=== PATIENT | female | born 1995 | race Asian ===

== ENCOUNTER → 2020-08-10 | Emergency (ER) | payer OTHER ==
[~2020-08-10] VITALS: Ht 160 cm; Wt 56.7 kg
[~2020-08-10] MED LIST: BACTRIM DS TAB1 EAC1 ORAL; IBUPROFEN600 M1 ORAL
--- NOTE | 2020-08-10 16:16 | Emergency Room Report ---
History of Present Illness General Chief Complaint: Lower Extremity Injury Source: Patient (Jo Clarke) Present Illness HPI 24-year-old female with no significant past medical history here complaining of 2 days of right third toe pain after kicking luggage. Obvious pus drainage noted. Has full range of motion. Right third toe is tender to palpation DIP. Has not taken medication for symptom relief. Has range of motion. Is neurovascularly intact. Denies any tingling or numbness. Has not taken medication for symptom relief. Denies other injuries. Is up-to-date with tetanus shot. Denies all other past medical history. Denies . (Jo Clarke) Allergies: Coded Allergies: PENICILLINS (Verified Allergy, Unknown, 08/10/20) COVID-19 Screening Contact w/high risk pt: No Experienced COVID-19 symptoms?: No COVID-19 Testing performed [employer]: No (Jo Clarke) Patient History Past Medical History: see triage record Past Surgical History: none Pertinent Family History: none Last Menstrual Period: 2 weeks ago Now: No Immunizations: UTD Reviewed Nursing Documentation: PMH: Agreed; PSxH: Agreed (Jo Clarke) Nursing Documentation-PMH Past Medical History: No Stated History (Jo Clarke) Review of Systems All Other Systems: negative except mentioned in HPI (Jo Clarke) Physical Exam Vital Signs Date Time Temp Pulse Resp B/P (MAP) Pulse Ox O2 Delivery O2 Flow Rate FiO2 08/10/20 15:57 97.0 85 14 120/83 (95) 99 Room Air Sp02 EP Interpretation: reviewed, normal General Appearance: no apparent distress, alert, GCS 15, non-toxic Head: normocephalic, atraumatic Eyes: bilateral eye normal inspection, bilateral eye PERRL ENT: hearing grossly normal, normal pharynx, no angioedema, normal voice Neck: full range of motion, supple/symm/no masses Respiratory: chest non-tender, lungs clear, normal breath sounds, speaking full sentences Cardiovascular #1: regular rate, rhythm, no edema Cardiovascular #2: 2+ dorsalis pedis (R), 2+ dorsalis pedis (L) Gastrointestinal: normal bowel sounds, non tender, soft, non-distended, no guarding, no rebound Musculoskeletal: back normal, no calf tenderness, tender - Right third toe Neurologic: alert, motor strength/tone normal, oriented x3, sensory intact, responsive, speech normal Psychiatric: judgement/insight normal, memory normal, mood/affect normal, no suicidal/homicidal ideation Skin: other - Pus drainage noted nailbed of right third toe Lymphatic: no adenopathy (Jo Clarke) Procedures Splinting Splinting : Consent: Verbal Location: Right third toe Pre-Made Type: aranza tape and post op shoe Pre-Proc Neuro Vasc Exam: normal Post-Proc Neuro Vasc Exam: normal Patient Tolerated: Well Complications: None (Jo Clarke) Medical Decision Making PA Attestation All diagnoses and treatment plans were reviewed and discussed with my supervising physician Dr. Marks (Jo Clarke) Diagnostic Impression: Primary Impression: Toe infection Additional Impression: Crush injury, toe Qualified Codes: S97.101A - Crushing injury of unspecified right toe(s), initial encounter ER Course 24-year-old female with no significant past medical history here complaining of 2 days of right third toe pain after kicking luggage. Obvious pus drainage noted. Has full range of motion. Right third toe is tender to palpation DIP. Has not taken medication for symptom relief. Has range of motion. Is neurovascularly intact. Denies any tingling or numbness. Has not taken medication for symptom relief. Denies other injuries. Is up-to-date with tetanus shot. Denies all other past medical history. Denies . Ddx considered but are not limited to : Cellulitis, abscess, toe fracture versus crush injury versus sprain versus strain Vital signs: are WNL, pt. is afebrile H&PE are most consistent with: Toe infection, crush injury of toe ORDERS: Right foot x-ray, Bactrim, Motrin ED INTERVENTIONS: Aranza tape, postop shoe, wound clean and dress DISCHARGE: At this time pt. is stable for d/c to home. Will provide printed patient care instructions, and any necessary prescriptions. Care plan and follow up instructions have been discussed with the patient prior to discharge. Patient take medication as directed, follow primary care provider, if worsening symptoms return to the emergency room. Also follow-up with orthopedist. (Jo Clarke) Other X-Ray Diagnostic Results Other X-Ray Diagnostic Results : X-Ray ordered: Right foot # of Views/Limited Vs Complete: 3 View Indication: Pain EP Interpretation: Yes PA Xray: Interpretation reviewed, by supervising MD, and agrees with findings. Interpretation: no dislocation, no soft tissue swelling, no fractures Impression: No acute disease Electronically Signed by: Jo CAMPA Scribe Text INDICATION: Trauma COMPARISON: None FINDINGS: 3 views of the right foot are obtained. Bony structures are intact. Bone mineralization is within normal limits. Joint spaces are preserved. Soft tissues within normal limits. No radio-opaque foreign bodies. IMPRESSION: No acute fracture or subluxation identified. (Jo Clarke) Other X-Ray Diagnostic Results : Electronically Signed by: Robin Bird documentation of Xray reviewed by me and is accurate, Randell Marks MD (Randell Marks MD) Last Vital Signs Date Time Temp Pulse Resp B/P (MAP) Pulse Ox O2 Delivery O2 Flow Rate FiO2 08/10/20 15:57 97.0 85 14 120/83 (95) 99 Room Air (Jo Clarke) Disposition: HOME, SELF-CARE Condition: Stable Scripts Ibuprofen* (MOTRIN*) 600 Mg Tablet 600 MG ORAL Q8H PRN for FOR PAIN, #20 TAB 0 Refills Prov: Jo Clarke 08/10/20 Trimethoprim/Sulfamethoxazole 160/800* (BACTRIM DS TABLET*) 1 Each Tablet 1 TAB ORAL TWICE A DAY for 7 Days, #14 TAB Prov: Jo Clarke 08/10/20 Patient Instructions: Crush Injury, Fingers or Toes, [id number] Additional Instructions: Take medication as directed, follow primary care provider, if worsening symptoms return to the emergency room Jo Clarke Aug 10, 2020 16:16 Randell Marks MD Aug 11, 2020 01:43
[2020-08-10 16:27] VITALS: BP 114/76
--- NOTE | 2020-08-10 16:28 | NUR ---
ED Nurse Note: Patient admitted for pain on the second digit of the right foot. pain noted to increase to 6/10 when ambulating or when pressure is placed on it.
--- NOTE | 2020-08-10 16:46 | NUR ---
ED Nurse Note: Patient right foot toe treated with and splint for placed on the on her foot. X-rays taken and read by physician. patient discharged home with antibiotics and pain management prescription.
--- NOTE | 2020-08-10 16:53 | Diagnostic Imaging Report ---
FILM RIGHT FOOT RIGHT FOOT, 3 views INDICATION: Trauma COMPARISON: None FINDINGS: 3 views of the right foot are obtained. Bony structures are intact. Bone mineralization is within normal limits. Joint spaces are preserved. Soft tissues within normal limits. No radio-opaque foreign bodies. IMPRESSION: No acute fracture or subluxation identified.
== END | disposition home or self-care (01) ==
LOC: EMR 16:00
DX: S97.101A Crushing injury of unspecified right toe(s), initial encounter (principal); B99.9 Unspecified infectious disease; W22.8XXA Striking against or struck by other objects, initial encounter; Y92.9 Unspecified place or not applicable; Z88.0 Allergy status to penicillin
CPT/HCPCS: 99283